=== PATIENT | male | born 1980 | race Caucasian/White ===

== ENCOUNTER 2019-06-16 08:27 | Emergency (ER) | payer OTHER ==
[~2019-06-16] VITALS: Ht 188 cm; Wt 99.2 kg
[2019-06-16 08:27] VITALS: BP 135/87
--- NOTE | 2019-06-16 09:01 | PHYS DOC ---
Adult General Chief Complaint Chief Complaint: FACE PROBLEM HPI HPI 38-year-old male presents with left-sided facial weakness. It includes the upper part of his face, middle part, and lower face. His left eye is not fully blinking. He does believe that it stays closed at night. He has had these symptoms for about 1 week. He also has a mild headache sensation on the left side of his scalp. He describes this as a tingling and pressure. He has no other symptoms of weakness or deficit. He is using rewetting drops. He denies fever chills. He has no other complaints at this time. Review of Systems Review of Systems Constitutional: Denies fever or chills [] Eyes: Denies change in visual acuity, redness, or eye pain [] HENT: Denies nasal congestion or sore throat [] Respiratory: Denies cough or shortness of breath [] Cardiovascular: No additional information not addressed in HPI [] GI: Denies abdominal pain, nausea, vomiting, bloody stools or diarrhea [] : Denies dysuria or hematuria [] Musculoskeletal: Denies back pain or joint pain [] Integument: Denies rash or skin lesions [] Neurologic: Left-sided headache, left-sided facial droop and weakness [] Endocrine: Denies polyuria or polydipsia [] All other systems were reviewed and found to be within normal limits, except as documented in this note. Allergies Allergies Allergies Coded Allergies Type Severity Reaction Last Updated Verified No Known Drug Allergies 06/16/19 No Physical Exam Physical Exam Constitutional: Well developed, well nourished, no acute distress, non-toxic appearance. [] HENT: Normocephalic, atraumatic, bilateral external ears normal, oropharynx moist, no oral exudates, nose normal. [] Eyes: PERRLA, EOMI, conjunctiva normal, no discharge. [] Neck: Normal range of motion, no tenderness, supple, no stridor. [] Cardiovascular:Heart rate regular rhythm, no murmur [] Lungs & Thorax: Bilateral breath sounds clear to auscultation [] Abdomen: Bowel sounds normal, soft, no tenderness, no masses, no pulsatile masses. [] Skin: Warm, dry, no erythema, no rash. [] Back: No tenderness, no CVA tenderness. [] Extremities: No tenderness, no cyanosis, no clubbing, ROM intact, no edema. [] Neurologic: Alert and oriented X 3, left facial droop in the upper and lower p ortions of the face consistent with Delgado's palsy [] Psychologic: Affect normal, judgement normal, mood normal. [] EKG EKG [] Radiology/Procedures Radiology/Procedures [] Course & Med Decision Making Course & Med Decision Making Pertinent Labs and Imaging studies reviewed. 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 I have given him guidance about maintaining and protecting his eye. He is stable for discharge at this time. [] Dragon Disclaimer Dragon Disclaimer This electronic medical record was generated, in whole or in part, using a voice recognition dictation system. Departure Departure: Impression: Primary Impression: Delgado palsy Disposition: 01 HOME, SELF-CARE Condition: STABLE Referrals: KRISTINE HSIEH DO (PCP) Patient Instructions: Delgado's Palsy ORIANA BOSWELL DO Jun 16, 2019 09:01
== END 2019-06-16 09:00 | disposition home or self-care (01) ==
LOC: ER 08:27
DX: G51.0 Bell's palsy (principal); R51 Headache
CPT/HCPCS: 99281